=== PATIENT | female | born 1995 | race Caucasian/White ===

== ENCOUNTER 2021-02-05 01:08 | Emergency (ER) | payer BC, OTHER ==
[~2021-02-05] VITALS: Ht 182.9 cm; Wt 88.5 kg
[2021-02-05] MEDS ORDERED: MEDROLDOSEPACK (01:20)
[2021-02-05] MEDS ORDERED: LEXAPRO 10 MG T10 M1 PO (01:20)
[2021-02-05] MEDS ORDERED: JUNEL1 EAC1 PO (01:20)
[2021-02-05] MEDS ORDERED: RIZATRIPTAN10 MG PO (01:21)
[2021-02-05] MEDS ORDERED: NORTRIPTYLINE H50 MG PO (01:21)
[2021-02-05] MEDS ORDERED: TIZANIDINE HCL4 M1 PO (01:22)
[2021-02-05] MEDS ORDERED: PHENERGAN 25 MG25 MG PO (01:23)
[2021-02-05 02:14] LABS: ABSOLUTE NEUTROPHILS 2.7 thou/uL (1.4-8.2); BASOPHILS 0.5 % (0.0-2.0); EOSINOPHILS 1.9 % (0.0-3.0); HEMATOCRIT 39.5 % (37.0-47.0); HEMOGLOBIN 13.1 gm/dL (12.0-15.0); LYMPHOCYTES 45.2 % (24.0-44.0); MCH 28.5 pg (26.0-34.0); MCHC 33.2 g/dL (28.0-37.0); MCV 85.7 fL (80.0-100.0); MONOCYTES 10.5 % (1.0-8.0); PLATELET COUNT 366 thou/uL (150-400); POLYS 41.9 % (36.0-66.0); RBC 4.61 mil/uL (4.20-5.00); RDW 12.5 % (10.5-14.5); WBC 6.4 thou/uL (4.0-11.0)
[2021-02-05 02:15] LABS: CALCIUM 8.3 mg/dL (8.5-10.1); CREATININE 0.7 mg/dL (0.6-1.0); POTASSIUM 3.6 mmol/L (3.5-5.1)
[2021-02-05 02:49] VITALS: BP 127/77
== END 2021-02-05 02:55 | disposition home or self-care (01) ==
LOC: ER 01:08
PROVIDERS: Emergency Medicine
DX: G43.909 Migraine, unspecified, not intractable, without status migrainosus (principal); Z79.899 Other long term (current) drug therapy; Z88.2 Allergy status to sulfonamides; Z88.8 Allergy status to other drugs, medicaments and biological substances